=== PATIENT | female | born 1940 | race Asian ===

== ENCOUNTER 2022-07-21 15:05 | Emergency (ER) | payer OTHER, MEDICAID ==
[~2022-07-21] VITALS: Ht 157.5 cm; Wt 68.0 kg
[2022-07-21 15:20] VITALS: BP 127/76
--- NOTE | 2022-07-21 15:35 | NUR ---
TO ER BED 11
--- NOTE | 2022-07-21 15:40 | NUR ---
ASSUMED PATIENT CARE, NURSING ASSESSMENT COMPLETED.
[2022-07-21] MEDS ORDERED: MORPHINE SULFATE 4 MG/ML SYR IM ONE (15:45)
[2022-07-21] MEDS ORDERED: ACET-5629 PO ×2 (16:25→16:42)
--- NOTE | 2022-07-21 16:51 | NUR ---
DISPO AND MEDICAL DECISION MAKING, DC HOME WITH E-RX, AND AFTERCARE INSTRUCTIONS UNDERSTOOD BY PATIENT AND DAUGHTER WELL. VS WNL, DC WITH DAUGHTER VIA WC.
[2022-07-21 16:53] VITALS: BP 122/65
== END 2022-07-21 16:53 | disposition home or self-care (01) ==
LOC: MED 15:05
DX: M25.571 Pain in right ankle and joints of right foot (principal); I10 Essential (primary) hypertension; Z79.899 Other long term (current) drug therapy
CPT/HCPCS: 73610; 96372; 99283; J2270; Q0092

== ENCOUNTER 2022-07-29 10:57 | Inpatient (IN) | payer OTHER, MEDICAID ==
[~2022-07-29] VITALS: Ht 154.9 cm; Wt 66.7 kg
[~2022-07-29 10:57] MED LIST: ACET-5629 PO
[2022-07-29 11:07] VITALS: BP 167/101
--- NOTE | 2022-07-29 11:17 | NUR ---
Shaggy louis in [facility] - 07/29/22 at 1119 by MED1 PT W/C ASSISTED TO BED 2.
--- NOTE | 2022-07-29 11:19 | NUR ---
PT W/C ASSISTED TO BED 12.
--- NOTE | 2022-07-29 11:56 | NUR ---
ASSUMED PATIENT CARE, NURSING ASSESSMENT COMPLETED.
[2022-07-29 13:18] LABS: HEMATOCRIT 45.9 % (36-48); MEAN CORPUSCULAR HEMOGLOBIN 29 pg (27-31); MEAN CORPUSCULAR HGB CONC 33 g/dL (33-37); MEAN CORPUSCULAR VOLUME 87.6 fL (80-94); PLATELET COUNT (AUTO) 254 K/uL (140-450); RED BLOOD CELL COUNT(AUTO) 5.23 MIL/uL (4.20-5.40); WHITE BLOOD COUNT (AUTO) 14.3 K/uL (4.8-10.8)
[2022-07-29] MEDS ORDERED: NACL 0.9% 2,000 ML IV SCH (13:35)
[2022-07-29 13:51] LABS: EOSINOPHILS % (MANUAL) 1 % (0-4); LYMPHOCYTES % (MANUAL) 9 % (20-46); MONOCYTES % (MANUAL) 7 % (5-12)
[2022-07-29 14:04] LABS: ALBUMIN 3.6 g/dL (3.4-5.0); ANION GAP 13.7 (8-16); ASPARTATE AMINOTRANSFERASE 19 U/L (15-37); CHLORIDE 105 mmol/L (98-107); CREATININE 0.9 mg/dL (0.6-1.3); GLUCOSE 119 mg/dL (74-106); POTASSIUM 3.7 mmol/L (3.5-5.1); SODIUM SERUM 143 mmol/L (136-145); TOTAL BILIRUBIN 0.6 mg/dL (0.0-1.0); UREA NITROGEN, BLOOD 15 mg/dL (7-18)
[2022-07-29] MEDS ORDERED: cefTRIAXone 1,000 MG VIAL ONE (14:07)
[2022-07-29 14:20] LABS: APPEARANCE,URINE CLEAR (CLEAR); BILIRUBIN,URINE NEGATIVE (NEGATIVE); BLOOD, URINE NEGATIVE (NEGATIVE); COLOR,URINE YELLOW (YELLOW); LEUKOCYTE ESTERASE ,URINE NEGATIVE (NEGATIVE); NITRITE, URINE POSITIVE (NEGATIVE); UGLUCOSE NEGATIVE (NEGATIVE)
[2022-07-29] MEDS ORDERED: DEXTROSE 50% 50 ML SYR IVP PRN (14:20)
[2022-07-29 14:38] LABS: RBC,URINE 0-5 /HPF (0-5); WBC,URINE 0-5 /HPF (0-5)
[2022-07-29] MEDS: BLOOD GLUCOSE MONITORING 1 DEV DEV FS SCH ×2 (16:30→23:17)
[2022-07-29] MEDS: lisinopriL 5 MG TAB PO SCH (17:52)
--- NOTE | 2022-07-29 18:24 | NUR ---
P.T. NOTES P.T. EVAL COMPLETED; REFER TO EVAL FOR DETAILS.
--- NOTE | 2022-07-29 18:27 | NUR ---
DAUGHTER UNABLE TO RECALL PATIENT'S MEDS.
--- NOTE | 2022-07-29 19:45 | NUR ---
Patient lying in bed, A/Ox4, chest rise and fall symmetrical, no c/o pain or s/s of discomfort, on monitor.
--- NOTE | 2022-07-29 20:47 | NUR ---
NURSE REPORT REPORT OBTAINED FROM ER NURSE BRITTANY AND PATIENT TO BE IN 127B. DAUGHTER WAS WITH PATIENT AND NEEDED HER TO ASK QUESTIONS, SINCE PATIENT SPEAK ONLY ICELANDIC.
--- NOTE | 2022-07-29 20:47 | NUR ---
Patient will be admitted to care of Jose SUAREZ. Admited to Tele. Will go to room Tele 127A. Belongings list completed. Report to Jose SUAREZ. Jose SUAREZ verbalized understanding of report, no further questions.
[2022-07-29 21:00] VITALS: BP 157/95
[2022-07-29] MEDS: INSULIN LISPRO SLIDING SCALE 100 UNITS/ML VIAL SUBQ PRN (23:17)
[2022-07-29] MEDS: MORPHINE SULFATE 2 MG/ML SYR IVP PRN (23:39)
[2022-07-30] VITALS: BP 134/78
--- NOTE | 2022-07-30 | NUR ---
NURSE NOTES VSS. AFEB. NO C/O PAIN OR DISCOMFORT. TELE MONITOR WITH SR.
[2022-07-30 05:00] VITALS: BP 118/72
[2022-07-30] MEDS ORDERED: CARB1TAB37 PO (06:42)
[2022-07-30] MEDS ORDERED: ATOR10TA PO (06:42)
[2022-07-30] MEDS ORDERED: RASA1TAB PO (06:42)
[2022-07-30] MEDS ORDERED: [UNRECOGNIZED DRUG - CODE] PO (06:42)
[2022-07-30] MEDS ORDERED: METF-346 PO (06:42)
[2022-07-30] MEDS ORDERED: SITA50TA3 PO (06:42)
[2022-07-30] MEDS ORDERED: HYDR-3729 PO (06:42)
--- NOTE | 2022-07-30 07:07 | NUR ---
receive the patient from the shift nurse manager rn in rm 110B aox 3 with episode of confusion admitting diagnosis of generalized weakness . will continue to monitor
--- NOTE | 2022-07-30 07:20 | NUR ---
NURSE REPORT REPORT GIVEN TO [facility] NURSE MARYLIN TO ASSUME CARE OF PATIENT. SBAR GIVEN. ALL QUESTIONS ANSWERED. EARL CLINTON RN
[2022-07-30] MEDS ORDERED: [UNRECOGNIZED DRUG - CODE] OP (07:28)
[2022-07-30] MEDS ORDERED: BRIM5SOL3 OP (07:32)
[2022-07-30] MEDS ORDERED: MAG SULF 2000 MG/WATER PREMIX 50 ML IV PRN (07:40)
[2022-07-30] MEDS ORDERED: MORPHINE SULFATE 2 MG/ML SYR IVP PRN (07:40)
[2022-07-30] MEDS ORDERED: DOCUSATE SODIUM 100 MG GELCAP PO PRN (07:40)
[2022-07-30] MEDS ORDERED: ACETAMINOPHEN 325 MG TAB PO PRN (07:40)
[2022-07-30] MEDS ORDERED: ZOLPIDEM 10 MG TAB PO PRN (07:40)
[2022-07-30] MEDS ORDERED: POTASSIUM CHLORIDE 10 MEQ TABER PO PRN (07:40)
[2022-07-30] MEDS ORDERED: ONDANSETRON 4 MG/2 ML VIAL IVP PRN (07:40)
[2022-07-30] MEDS ORDERED: LORazepam 2 MG/ML VIAL IVP PRN (07:40)
[2022-07-30 08:00] VITALS: BP 154/82
[2022-07-30] MEDS: BLOOD GLUCOSE MONITORING 1 DEV DEV FS SCH ×4 (08:18→21:00)
[2022-07-30] MEDS ORDERED: CARBIDOPA/LEVODOPA 25/100 MG 1 TAB PO SCH (09:00)
[2022-07-30] MEDS: lisinopriL 5 MG TAB PO SCH (09:16)
[2022-07-30] MEDS: AMANTADINE 100 MG CAP PO SCH (09:17)
--- NOTE | 2022-07-30 09:19 | NUR ---
PATIENT HAS BEEN SCREENED AND CATEGORIZED MODERATE NUTRITION RISK. PATIENT WILL BE SEEN WITHIN 3-5 DAYS OF ADMISSION. REVIEWED BY SUREKHA BURGOS RD
[2022-07-30] MEDS: NACL 0.9% 1,000 ML IV SCH ×2 (10:53→21:06)
[2022-07-30] MEDS: INSULIN LISPRO SLIDING SCALE 100 UNITS/ML VIAL SUBQ PRN (11:20)
[2022-07-30] MEDS: DORZOLAMIDE 2% OP 10 ML BTL OP SCH ×2 (13:29→21:00)
[2022-07-30] MEDS: BRIMONIDINE TARTRATE 0.2% OP 5 ML BTL OP SCH ×2 (13:30→20:59)
--- NOTE | 2022-07-30 13:37 | NUR ---
DC PLANNING OUTREACHED TO PT'S EMERGENCY CONTACT, LILIAM SHAW, HOWEVER, NO ANSWER. MESSAGE LEFT REQUESTING A RETURN PHONE CALL. Addendum: 08/02/22 at 1603 by BRII NORTON [facility] RECEIVED ORDER TO ARRANGE PT TO GO BACK TO [facility] FOR PHYSICAL THERAPY. DC RAILROAD FIRER FAXED TO [facility]. SPOKE WITH NAVEED AND [facility] ACCEPTED PT BACK LOCATED AT [address] [place] [address] . PT WILL BE GOING TO ROOM 28-A UNDER THE CARE OF DR. YEN. NUMBER FOR REPORT . LEONARD VALLEJO ARRANGED WITH [facility] AT [facility] WITH A [id number] FIELD INSTALLER TIME.NURSE SLOAN AND DAUGHTER LILIAM AWARE OF THE ABOVE INFORMATION.
[2022-07-30 16:00] VITALS: BP 138/75
--- NOTE | 2022-07-30 18:35 | NUR ---
will endorse to night time nanny rn for continuity of care
[2022-07-30 20:00] VITALS: BP 147/83
--- NOTE | 2022-07-30 20:00 | NUR ---
NURSE REPORT REPORT OBTAINED FROM [facility] NURSE COULTER AND THIS NURSE ASSUME CARE OF PATIENT. ALL QUESTIONS ANSWERED. EARL CLINTON RN
--- NOTE | 2022-07-30 20:00 | NUR ---
NURSE REPORT REPORT OBTAINED FROM THE DAYSHIFT NURSE MARYLIN AND HE C/O PATIENT DIDN'T HAVE AN IV THIS AM. PATIENT WAS GIVEN IV MORPHINE DURING THE NIGHT. PATIENT PULLED OUT IV IN THE AM AND HE WAS TOLD TO RESTART THE IV. HAD DID EVERYTHING FOR ADMISSION, GETTING MED IN THE SYSTEM.
[2022-07-30] MEDS: ATORVASTATIN 20 MG TAB PO SCH (20:56)
[2022-07-30] MEDS: MORPHINE SULFATE 2 MG/ML SYR IVP PRN (23:12)
--- NOTE | 2022-07-31 | NUR ---
NURSE NOTES MEDICATED FOR PAIN WITH MORPHINE 2 MG IVP AT 2312 WITH RELIEF. SLEEPING WITHOUT ANY DISTRESS OR DISCOMFORT.
[2022-07-31 04:00] VITALS: BP 149/92
--- NOTE | 2022-07-31 04:00 | NUR ---
NURSE NOTES VSS. AFEB. NO C/O PAIN OR DISCOMFORT.
[2022-07-31] MEDS: BLOOD GLUCOSE MONITORING 1 DEV DEV FS SCH ×4 (06:47→20:38)
[2022-07-31] MEDS: NACL 0.9% 1,000 ML IV SCH (06:55)
--- NOTE | 2022-07-31 07:00 | NUR ---
NURSE NOTES BG THIS AM 134. NO INSULIN NEEDED. MEDICATED FOR PAIN WITH MORPHINE 2 MG IVP, IV NS 1 L HUNG AND AT 70 ML/HR.
--- NOTE | 2022-07-31 07:01 | NUR ---
receive the patinet from the fast food shift supervisor rn in rm 110B aox4 admitting diagnosis of generalized weakness . will continue to monitor
--- NOTE | 2022-07-31 07:12 | NUR ---
NURSE REPORT REPORT GIVEN TO DAYSHIFT NURSE GEARD TO ASSUME CARE OF PATIENT. ALL QUESTIONS ANSWERED. EARL CLINTON RN
--- NOTE | 2022-07-31 07:41 | NUR ---
NURSE NOTES INPATIENT PHARMACY WAS CALLED AND TOLD THAT THE SINEMET IS SUPPOSED TO BE GIVEN 2 TABS IN AM, 2 TABS AT 1400, AND 1 TAB AT BEDTIME. DAUGHTER ERICKA HAD TOLD THIS NURSE THE MEDICATION BY SENDING PICTURES OF MEDICATION BOTTLES. DAUGHTER HAS BEEN CALLED BY THIS NURSE SO SHE TO CAN SPEAK TO HER MOTHER OFF HER CELLPHONE AND ALSO HELP SPEAK IN OCCITAN. PATIENT IS MORE COOPERATIVE WHEN THIS NURSE DOES THIS. SINEMET ORDER HAS BEEN FIXED BY PHARMACY AND NOT 3XWEEK.
[2022-07-31 07:54] LABS: BASOPHILS % (AUTO) 0.2 % (0.0-2.0); EOSINOPHILS % (AUTO) 0.2 % (0.0-4.0); HEMATOCRIT 44.7 % (36-48); LYMPHOCYTES # (AUTO) 1.5 K/uL (2.5-16.5); LYMPHOCYTES % (AUTO) 14.1 % (20.5-51.1); MEAN CORPUSCULAR HEMOGLOBIN 29 pg (27-31); MEAN CORPUSCULAR HGB CONC 33 g/dL (33-37); MEAN CORPUSCULAR VOLUME 87.1 fL (80-94); MONOCYTES % (AUTO) 9.6 % (1.7-9.3); NEUTROPHILS # (AUTO) 8.1 K/uL (1.8-7.7); NEUTROPHILS % (AUTO) 75.9 % (42.2-75.2); PLATELET COUNT (AUTO) 248 K/uL (140-450); RED BLOOD CELL COUNT(AUTO) 5.14 MIL/uL (4.20-5.40); RED CELL DISTRIBUTION WIDTH 14.7 % (11.6-13.7); WHITE BLOOD COUNT (AUTO) 10.7 K/uL (4.8-10.8)
[2022-07-31 08:00] VITALS: BP 147/83
[2022-07-31 08:38] LABS: ANION GAP 12.1 (8-16); CARBON DIOXIDE 29.2 mmol/L (21-32); CHLORIDE 104 mmol/L (98-107); CREATININE 0.7 mg/dL (0.6-1.3); GLUCOSE 134 mg/dL (74-106); POTASSIUM 3.3 mmol/L (3.5-5.1); SODIUM SERUM 142 mmol/L (136-145); UREA NITROGEN, BLOOD 10 mg/dL (7-18)
--- NOTE | 2022-07-31 09:00 | NUR ---
ward joiner made rounds . talk with daughter for prognosis . md order xray of right knee , hips .
[2022-07-31] MEDS: AMANTADINE 100 MG CAP PO SCH (09:03)
[2022-07-31] MEDS: lisinopriL 5 MG TAB PO SCH (09:04)
[2022-07-31] MEDS: DORZOLAMIDE 2% OP 10 ML BTL OP SCH ×2 (09:04→20:36)
[2022-07-31] MEDS: CARBIDOPA/LEVODOPA 25/100 MG 1 TAB PO SCH ×3 (09:04→20:35)
[2022-07-31] MEDS: BRIMONIDINE TARTRATE 0.2% OP 5 ML BTL OP SCH ×2 (09:05→20:36)
--- NOTE | 2022-07-31 09:20 | NUR ---
gave potassium chloride for a level of 3.2
[2022-07-31] MEDS: INSULIN LISPRO SLIDING SCALE 100 UNITS/ML VIAL SUBQ PRN ×3 (11:52→20:46)
[2022-07-31 12:00] VITALS: BP 149/92
[2022-07-31 16:00] VITALS: BP 149/92
--- NOTE | 2022-07-31 18:47 | NUR ---
will endorse to shift production supervisor rn for continuity of care .
--- NOTE | 2022-07-31 18:49 | NUR ---
will endorse to production shift supervisor rn for continuity of care
--- NOTE | 2022-07-31 19:19 | NUR ---
RECEIVED REPORT FROM DANIELA MACKENZIE FOR CONTINUITY OF CARE. PT AWAKE RESTING IN BED. RESPIRATIONS EVEN AND UNLABORED ON RA. NO DISTRESS NOTED. NO COMPLAINTS OF PAIN. SKIN INTACT, WARM AND DRY TO TOUCH. IV SITE ON RAC INFUSING IVF. POC DISCUSSED WITH THE PT AND DANIELA CRUZ. CALL LIGHT WITHIN REACH. SAFETY PRECAUTIONS IN PLACE.
[2022-07-31 20:00] VITALS: BP 118/65
--- NOTE | 2022-07-31 20:00 | NUR ---
Patient's Plan of Care was discussed and reviewed with KIRSTEN RAE:
[2022-07-31] MEDS: ATORVASTATIN 20 MG TAB PO SCH (20:35)
--- NOTE | 2022-07-31 20:38 | NUR ---
V/S TAKEN. ADMINISTERED DUE MEDS. SLIDING SCALE GIVEN. CLEANED AND CHANGED PT DIAPER. PT TOLERATED WELL. NO COMPLAINTS OF PAIN.
[2022-08-01] MEDS: NACL 0.9% 1,000 ML IV SCH ×2 (02:39→16:30)
[2022-08-01 04:00] VITALS: BP 142/82
--- NOTE | 2022-08-01 04:15 | NUR ---
V/S TAKEN. MORNING CARE DONE. PT TOLERATED WELL. FOLLOWS COMMAND. NO COMPLAINTS OF PAIN. PT REMAINED CLEAN AND DRY.
[2022-08-01] MEDS: MORPHINE SULFATE 2 MG/ML SYR IVP PRN ×2 (05:39→16:28)
[2022-08-01] MEDS: BLOOD GLUCOSE MONITORING 1 DEV DEV FS SCH ×4 (06:34→20:20)
[2022-08-01 06:56] LABS: BASOPHILS % (AUTO) 0.2 % (0.0-2.0); EOSINOPHILS # (AUTO) 0.1 K/uL (0-0.4); HEMATOCRIT 41.7 % (36-48); HEMOGLOBIN 13.7 g/dL (12.0-16.0); LYMPHOCYTES # (AUTO) 1.4 K/uL (2.5-16.5); LYMPHOCYTES % (AUTO) 21.6 % (20.5-51.1); MEAN CORPUSCULAR HEMOGLOBIN 29 pg (27-31); MEAN CORPUSCULAR HGB CONC 33 g/dL (33-37); MEAN CORPUSCULAR VOLUME 88.1 fL (80-94); MONOCYTES # (AUTO) 0.7 K/uL (0.8-1.0); MONOCYTES % (AUTO) 10.6 % (1.7-9.3); NEUTROPHILS # (AUTO) 4.4 K/uL (1.8-7.7); NEUTROPHILS % (AUTO) 66.6 % (42.2-75.2); PLATELET COUNT (AUTO) 210 K/uL (140-450); RED BLOOD CELL COUNT(AUTO) 4.73 MIL/uL (4.20-5.40); RED CELL DISTRIBUTION WIDTH 14.6 % (11.6-13.7); WHITE BLOOD COUNT (AUTO) 6.6 K/uL (4.8-10.8)
--- NOTE | 2022-08-01 07:06 | NUR ---
GAVE BEDSIDE REPORT TO RN RAFA FOR CONTINUITY OF CARE. ALL NEEDS MET THROUGHOUT SHIFT. PT REMAINS STABLE.
[2022-08-01 07:20] LABS: ANION GAP 10.6 (8-16); CARBON DIOXIDE 28.2 mmol/L (21-32); CHLORIDE 107 mmol/L (98-107); CREATININE 0.7 mg/dL (0.6-1.3); GLUCOSE 118 mg/dL (74-106); POTASSIUM 3.8 mmol/L (3.5-5.1); SODIUM SERUM 142 mmol/L (136-145); UREA NITROGEN, BLOOD 9 mg/dL (7-18)
--- NOTE | 2022-08-01 07:30 | NUR ---
RECEIVED REPORT FROM [facility] NURSEKIRSTEN. PT AWAKE, ALERT. NO SOB OR RESPIRATORY DISTRESS. ON RA. HOB ELEVATED. REGULAR DIET. NS @ 70 ML/HR ON RAC #20. IN NO ACUTE DISTRESS AT THIS TIME. ALL SAFETY MEASURES IN PLACE.
[2022-08-01 08:00] VITALS: BP 150/90
[2022-08-01] MEDS: CARBIDOPA/LEVODOPA 25/100 MG 1 TAB PO SCH ×3 (08:32→20:22)
[2022-08-01] MEDS: lisinopriL 5 MG TAB PO SCH (08:34)
[2022-08-01] MEDS: AMANTADINE 100 MG CAP PO SCH (08:35)
[2022-08-01] MEDS: DORZOLAMIDE 2% OP 10 ML BTL OP SCH ×2 (08:35→20:21)
[2022-08-01] MEDS: BRIMONIDINE TARTRATE 0.2% OP 5 ML BTL OP SCH ×2 (08:36→20:20)
--- NOTE | 2022-08-01 11:00 | NUR ---
PLAN OF CARE DISCUSSED WITH PT'S SON AT BEDSIDE. ALL QUESTIONS ANSWERED. PT'S SON STATES PT NEEDS TO BE CLEANED. CONTACTED MANAGER SOCIAL SERVICES TO CHANGE PT.
[2022-08-01] MEDS: INSULIN LISPRO SLIDING SCALE 100 UNITS/ML VIAL SUBQ PRN ×3 (11:42→20:20)
--- NOTE | 2022-08-01 14:47 | NUR ---
PT WITH URINE OUTPUT. HYGIENIC CARE PROVIDED. PT REPOSITIONED AND TOLERATED WELL. SEMI-FOWLERS. NEEDS ALL MET AT THIS TIME. ALL SAFETY MEASURES IN PLACE.
[2022-08-01 16:00] VITALS: BP 147/87
--- NOTE | 2022-08-01 19:22 | NUR ---
BEDSIDE REPORT GIVEN TO NIGHTSHIFT NURSEKIRSTEN FOR CONTINUITY OF CARE.
--- NOTE | 2022-08-01 19:23 | NUR ---
RECEIVED REPORT FROM DAY SHIFT NURSE RAFA FOR CONTINUITY OF CARE. PT IN BED, AWAKE. RESPIRATIONS EVEN AND UNLABORED ON RA. NO DISTRESS NOTED. NO COMPLAINTS OF PAIN. INITIAL ASSESSMENT DONE. POC DISCUSSED WITH PT AND DANIELA WELLS. CALL LIGHT WITHIN REACH. SAFETY PRECAUTIONS IN PLACE.
[2022-08-01 20:00] VITALS: BP 117/63
[2022-08-01] MEDS: ATORVASTATIN 20 MG TAB PO SCH (20:22)
--- NOTE | 2022-08-01 20:28 | NUR ---
ADMINISTERED DUE MEDS. PT TOLERATED WELL. SLIDING SCALE INSULIN GIVEN. CLEANED AND CHANGED PT DIAPER, REMAINED CLEAN AND DRY.
--- NOTE | 2022-08-01 22:34 | NUR ---
Patient's Plan of Care was discussed and reviewed with BUTCH CURTIS.
[2022-08-02] MEDS: NACL 0.9% 1,000 ML IV SCH (02:24)
[2022-08-02] MEDS: MORPHINE SULFATE 2 MG/ML SYR IVP PRN ×2 (02:55→14:38)
--- NOTE | 2022-08-02 06:05 | NUR ---
DID MORNING CARE. CLEANED AND CHANGED PT DIAPER. PT NO COMPLAINT OF PAIN AT THIS TIME. NO DISTRESS NOTED.
[2022-08-02] MEDS: BLOOD GLUCOSE MONITORING 1 DEV DEV FS SCH ×3 (06:37→16:30)
[2022-08-02 06:53] LABS: ANION GAP 10.9 (8-16); CARBON DIOXIDE 28.4 mmol/L (21-32); CHLORIDE 107 mmol/L (98-107); CREATININE 0.7 mg/dL (0.6-1.3); GLUCOSE 118 mg/dL (74-106); POTASSIUM 3.3 mmol/L (3.5-5.1); SODIUM SERUM 143 mmol/L (136-145); UREA NITROGEN, BLOOD 8 mg/dL (7-18)
[2022-08-02 07:02] LABS: BASOPHILS % (AUTO) 0.2 % (0.0-2.0); EOSINOPHILS # (AUTO) 0.1 K/uL (0-0.4); EOSINOPHILS % (AUTO) 1.2 % (0.0-4.0); HEMATOCRIT 41.6 % (36-48); HEMOGLOBIN 13.9 g/dL (12.0-16.0); LYMPHOCYTES # (AUTO) 1.7 K/uL (2.5-16.5); MEAN CORPUSCULAR HEMOGLOBIN 29 pg (27-31); MEAN CORPUSCULAR HGB CONC 33 g/dL (33-37); MEAN CORPUSCULAR VOLUME 87.6 fL (80-94); MONOCYTES # (AUTO) 0.6 K/uL (0.8-1.0); MONOCYTES % (AUTO) 7.7 % (1.7-9.3); NEUTROPHILS # (AUTO) 5.6 K/uL (1.8-7.7); NEUTROPHILS % (AUTO) 69.9 % (42.2-75.2); PLATELET COUNT (AUTO) 215 K/uL (140-450); RED BLOOD CELL COUNT(AUTO) 4.75 MIL/uL (4.20-5.40); RED CELL DISTRIBUTION WIDTH 14.6 % (11.6-13.7)
--- NOTE | 2022-08-02 07:04 | NUR ---
receive the patinet from the rn shift mgr rn in rm 110b aox2 admitting diagnosis of genralized weakness. will continue to monitor
--- NOTE | 2022-08-02 07:25 | NUR ---
ENDORSED PT TO RN GURDEEP FOR CONTINUITY OF CARE. ALL NEEDS MET THROUGHOUT SHIFT. PT IS STABLE.
[2022-08-02 08:00] VITALS: BP 140/90
[2022-08-02] MEDS: AMANTADINE 100 MG CAP PO SCH (09:14)
[2022-08-02] MEDS: DORZOLAMIDE 2% OP 10 ML BTL OP SCH (09:14)
[2022-08-02] MEDS: BRIMONIDINE TARTRATE 0.2% OP 5 ML BTL OP SCH (09:14)
[2022-08-02] MEDS: lisinopriL 5 MG TAB PO SCH (09:15)
[2022-08-02] MEDS: CARBIDOPA/LEVODOPA 25/100 MG 1 TAB PO SCH ×2 (09:21→13:33)
[2022-08-02] MEDS ORDERED: CEFT1SOL1 IV (10:29)
[2022-08-02] MEDS: INSULIN LISPRO SLIDING SCALE 100 UNITS/ML VIAL SUBQ PRN (12:55)
--- NOTE | 2022-08-02 14:00 | NUR ---
replace potassium for 3.3 . 40 meq of potassium by mouth
[2022-08-02 16:00] VITALS: BP 130/88
--- NOTE | 2022-08-02 16:01 | NUR ---
PT. WITH LOW JOJO SCALE AT MODERATE TO HIGH RISK, CONTINUE TO FOLLOW PRESSURE INJURY PREVENTION INTERVENTIONS. -POSITIONING: TURN AND REPOSITION PATIENT Q 2H OR SOONER USE PILLOWS TO KEEP BONY PROMINENCES FROM DIRECT CONTACT WITH SURFACES USE REPOSITIONING WEDGES TO PROVIDE 30-DEGREE ANGLE FOR SIDE LYING POSITIONS OFFLOADING OR FOAM DRESSING TO ALL TUBING TO PREVENT MEDICAL DEVICES RELATED PRESSURE INJURY -RE-EVALUATING AND MANAGING INCONTINENCE MONITOR SKIN CONDITION DURING POSITION CHANGE DO NOT MASSAGE REDNESS, BONY PROMINENCES FREQUENT SHAVONNE-CARE AND PROVIDE BARRIER CREAMS PRN IF SOILING MOISTURE CONTROL BY OFFER BED RODRIGEZ/URINAL /ABSORBENT PAD TO WICK AND HOLD MOISTURE KEEP SKIN DRY AND PROTECT FROM FRICTION -MANAGE FRICTION/SHEAR/MOBILITY KEEP HOB AT THE LOWEST LEVEL OF ELEVATION NO MORE THAN 30 DEGREE UNLESS OTHERWISE CONTRAINDICATED USE LIFT SHEET OR TRANSFER DEVICE TO MOVE PATIENT AND PREVENT LATERAL SHEER. PROTECT HEELS, ELBOWS BONY PROMINENCES WITH SKIN BERRIES OR FOAM DRESSING IF EXPOSED TO FRICTION OFFLOAD BILATERAL HEELS BY PLACING PILLOWS UNDER CALVES AT ALL TIMES, UNLESS OTHERWISE CONTRAINDICATED -PRESSURE REDISTRIBUTION SURFACE THERAPY RUTH ISOFLEX MATTRESS -NUTRITION: PLEASE FOLLOW RD RECOMMENDATIONS AND OFFER NUTRITION SUPPLEMENTS IF ORDERED. PLEASE CONTACT WOUND CARE NURSE FOR ANY QUESTION AND CHANGE OF WOUND CONDITION
--- NOTE | 2022-08-02 16:40 | NUR ---
gave report to [facility] for transfer
--- NOTE | 2022-08-02 18:59 | NUR ---
will endorse to night worker rn for continuity of care . will be discharge to [facility]
--- NOTE | 2022-08-02 19:55 | NUR ---
TRANSPORT IS HERE TO TRANSFER PATIENT TO [facility]. PATIENT HAS ALL BELONGINGS WITH HER, DISCHARGE PACKET GIVEN TO PATIENT, PATIENT FAMILY AT BEDSIDE. PT IS STABLE. PATIENT HAS BEEN DISCHARGED. AM SHIFT RN GAVE REPORT TO RECEIVING FACILITY
== END 2022-08-02 19:55 | DRG 872 ==
LOC: MED 10:57 → MTU 14:15 → MMU 18:58 → MTU 22:05
PROVIDERS: ADMIT Family Medicine; ATTEND Family Medicine
DX: A41.9 Sepsis, unspecified organism (principal); N39.0 Urinary tract infection, site not specified; M51.36 Other intervertebral disc degeneration, lumbar region; M54.31 Sciatica, right side; I10 Essential (primary) hypertension; G20 Parkinson's disease; E11.65 Type 2 diabetes mellitus with hyperglycemia; M25.561 Pain in right knee; M25.551 Pain in right hip; Z20.822 Contact with and (suspected) exposure to COVID-19; D72.829 Elevated white blood cell count, unspecified; Z79.891 Long term (current) use of opiate analgesic; Z79.899 Other long term (current) drug therapy
CPT/HCPCS: 36415; 71045; 73502; 73562; 80048; 80053; 81001; 82550; 82948; 83605; 83735; 84484; 85025; 87040; 87081; 87086; 96361; 96365; 97110; 97112; 97116; 97530; 99291; J0696; J1815; J2270; J7060; Q0092

== ENCOUNTER 2022-09-14 11:46 | Inpatient (IN) | payer OTHER, MEDICAID ==
[~2022-09-14] VITALS: Ht 167.6 cm; Wt 81.6 kg
[~2022-09-14 11:46] MED LIST changes: -ACET-5629 PO; +ATOR10TA PO; +BRIM5SOL3 OP; +CARB1TAB37 PO; +CEFT1SOL1 IV; +HYDR-3729 PO; +METF-346 PO; +RASA1TAB PO; +SITA50TA3 PO; +[UNRECOGNIZED DRUG - CODE] OP; +[UNRECOGNIZED DRUG - CODE] PO
[2022-09-14 12:04] VITALS: BP 101/67
--- NOTE | 2022-09-14 12:39 | NUR ---
HUNGARIAN LEATHER TOGGLER #[id number] SAEED AT BEDSIDE. PT COOPERATIVE WITH CARE
[2022-09-14 13:19] LABS: BASOPHILS # (AUTO) 0.1 K/uL (0.00-0.22); BASOPHILS % (AUTO) 0.5 % (0.0-2.0); EOSINOPHILS % (AUTO) 0.4 % (0.0-4.0); HEMATOCRIT 41.8 % (36-48); HEMOGLOBIN 14.2 g/dL (12.0-16.0); LYMPHOCYTES % (AUTO) 25.7 % (20.5-51.1); MEAN CORPUSCULAR HEMOGLOBIN 30 pg (27-31); MEAN CORPUSCULAR HGB CONC 34 g/dL (33-37); MONOCYTES # (AUTO) 1.1 K/uL (0.8-1.0); MONOCYTES % (AUTO) 9.4 % (1.7-9.3); NEUTROPHILS # (AUTO) 7.5 K/uL (1.8-7.7); PLATELET COUNT (AUTO) 297 K/uL (140-450); RED CELL DISTRIBUTION WIDTH 14.5 % (11.6-13.7); WHITE BLOOD COUNT (AUTO) 11.7 K/uL (4.8-10.8)
[2022-09-14 13:37] LABS: LIPASE 91 U/L (73-393)
[2022-09-14 13:41] LABS: PROTHROMBIN TIME 12.6 secs (10.8-13.4)
[2022-09-14 13:50] LABS: ALBUMIN 3.6 g/dL (3.4-5.0); ANION GAP 13.1 (8-16); ASPARTATE AMINOTRANSFERASE 21 U/L (15-37); CARBON DIOXIDE 31.3 mmol/L (21-32); CHLORIDE 95 mmol/L (98-107); GLUCOSE 99 mg/dL (74-106); POTASSIUM 3.4 mmol/L (3.5-5.1); SODIUM SERUM 136 mmol/L (136-145); TOTAL BILIRUBIN 1.4 mg/dL (0.0-1.0); UREA NITROGEN, BLOOD 35 mg/dL (7-18)
--- NOTE | 2022-09-14 13:57 | NUR ---
PT MOVED TO ER BED 4
--- NOTE | 2022-09-14 15:32 | NUR ---
SLEEPING, EASILY AROUSABLE, COOPERATIVE WITH CARE. DENIES ANY DISCOMFORT AT THIS TIME. DENIES NEED TO VOID URINE, NO BLADDER DISTENTION NOTED.
--- NOTE | 2022-09-14 17:44 | NUR ---
DAUGHTER AT BEDSIDE, SAYS PT FALLS DUE TO PARKINSONS, SHAKY HANDS AND WEAK LEGS
[2022-09-14] MEDS ORDERED: APIX5TAB PO (18:35)
[2022-09-14] MEDS ORDERED: HYDR-5080 PO (18:35)
--- NOTE | 2022-09-14 19:26 | NUR ---
RECEIVED PT SITTING UP IN BED, EATING MEAL TRAY.
[2022-09-14 19:59] LABS: APPEARANCE,URINE CLEAR (CLEAR); BILIRUBIN,URINE NEGATIVE (NEGATIVE); BLOOD, URINE NEGATIVE (NEGATIVE); COLOR,URINE YELLOW (YELLOW); LEUKOCYTE ESTERASE ,URINE NEGATIVE (NEGATIVE); NITRITE, URINE NEGATIVE (NEGATIVE); UGLUCOSE NEGATIVE (NEGATIVE)
--- NOTE | 2022-09-14 20:51 | NUR ---
REPORT CALLED TO DANIELA LI
[2022-09-14 21:35] VITALS: BP 103/68
--- NOTE | 2022-09-14 21:35 | NUR ---
PATIENT ADMITTED FROM ED, CAME VIA GURNEY, ABLE TO TRANSFER TO BED WITH MINIMUM ASSIST OF ONE. STAFF USES THE [employer] DETAIL SERGEANT SYSTEM #[id number], PATIENT IS ALERT AND ORIENTED X3, DENIES CHEST PAIN UPON ASSESSMENT, DENIES SOB. STAFF ALSO CALLED [facility] FOR ADMISSION INFORMATION OF PATIENT. PATIENT ORIENTED TO USE OF CALL LIGHT, CALL LIGHT WITHIN REACH, BED IN LOW AND LOCKED POSITION. MRSA DONE.
[2022-09-15] VITALS: BP 93/60
--- NOTE | 2022-09-15 00:10 | NUR ---
NO SIGNS OF DISTRESS NOTED, PATIENT IS ASLEEP, CALL LIGHT WITHIN REACH.
[2022-09-15 04:00] VITALS: BP 104/60
--- NOTE | 2022-09-15 04:15 | NUR ---
PATIENT IS AWAKE, NO SIGNS OF PAIN/DISCOMFORT NOTED, NO SIGNS OF DISTRESS NOTED. BEDSIDE CARE DONE, CALL LIGHT WITHIN REACH.
--- NOTE | 2022-09-15 05:30 | NUR ---
PATIENT WAS TALKING IN HER CAMPO LANGUAGE, STAFF USED [employer] [id number], PATIENT TOLD THE COMMERCIAL [employer]STATE PAR[employer]GAL THAT SHE PEE, SHE WANTS TO BE CHANGED INTO REGULAR BRIEFS, THAT SHE CAME BECAUSE OF CHEST PAIN, BUT DENIES CHEST PAIN AT THIS TIME. PATIENT WAS CHANGED, CALL LIGHT WITHIN REACH.
--- NOTE | 2022-09-15 06:30 | NUR ---
PATIENT C/O PAIN ON RIGHT LEG, COOK COLD MEAT DR. RALPH WAS NOTIFIED PATIENT HAS NO MEDICATIONS, AWAITING RESPONSE.
[2022-09-15] MEDS ORDERED: HYDROcodone/APAP 5/325 MG 1 TAB TAB ONE (06:51)
[2022-09-15] MEDS: HYDROcodone/APAP 5/325 MG 1 TAB TAB PO PRN (06:55)
--- NOTE | 2022-09-15 06:55 | NUR ---
PRN NORCO GIVEN ORDERED.
--- NOTE | 2022-09-15 07:18 | NUR ---
ENDORSED PATIENT TO DAY NURSE FOR CONTINUITY OF CARE. PATIENT IN STABLE CONDITION.
--- NOTE | 2022-09-15 07:30 | NUR ---
RECEIVED REPORT FROM OCCUPATIONAL HEALTH COORDINATOR NURSE FOR CONTINUITY OF CARE, POC DISCUSSED. PT IS RESTING IN BED, OCCUPATIONAL HEALTH COORDINATOR GAVE PAIN MEDICATION PER MD ORDER AT 0655. ON TELE MONITOR. ON ROOM AIR WITH CHEST RISING AND FALLING EVEN AND UNLABORED. CALL LIGHT WITHIN REACH, ALL SAFETY MEASURES IN PLACE.
[2022-09-15 08:00] VITALS: BP 168/72
--- NOTE | 2022-09-15 08:55 | NUR ---
PATIENT HAS BEEN SCREENED AND CATEGORIZED MODERATE NUTRITION RISK. PATIENT WILL BE SEEN WITHIN 3-5 DAYS OF ADMISSION. 09/17/22-09/19/[address]KHA BURGOS RD
[2022-09-15] MEDS ORDERED: CARBIDOPA/LEVODOPA 25/100 MG 1 TAB PO SCH (10:38)
[2022-09-15] MEDS ORDERED: DEXTROSE 50% 50 ML SYR IVP PRN (11:10)
[2022-09-15] MEDS: APIXABAN 2.5 MG TAB PO SCH ×2 (11:22→21:18)
[2022-09-15] MEDS: metFORMIN 500 MG TAB PO SCH ×2 (11:22→17:00)
[2022-09-15] MEDS: BLOOD GLUCOSE MONITORING 1 DEV DEV FS SCH ×3 (11:26→21:20)
--- NOTE | 2022-09-15 11:54 | NUR ---
DAUGHTER AT BEDSIDE, ALL QUESTIONS ANSWERED. POC DISCUSSED.
[2022-09-15 12:00] VITALS: BP 124/70
--- NOTE | 2022-09-15 13:48 | NUR ---
MINE ENGINEER AT BEDSIDE
--- NOTE | 2022-09-15 15:33 | NUR ---
DC PLANNING ASSESSMENT COMPLETE PLEASE REFER TO ASSESSMENT FOR ADDITIONAL DETAILS LILIAM , PT DAUGHTER REPORTS TENTATIVE DC PLAN IS FOR PT TO RETURN TO [facility], ONCE MEDICALLY STABLE. Addendum: 09/15/22 at 1534 by Doreen BELLA Amended: Links added.
[2022-09-15 16:00] VITALS: BP 113/71
--- NOTE | 2022-09-15 16:44 | NUR ---
PT DAUGHTER REQUESTING GRANDSONBENITO, AN UPDATE ON STATUS BY , NUMBER [phone] RALPH
--- NOTE | 2022-09-15 16:58 | NUR ---
1658: UPON ENTERING THE ROOM TO DO BLOOD SUGAR CHECK, DIAMOND POWDER MIXER CLEANING PT STATING PT IS BECOMING UNRESPONSIVE. STERNUM RUB COMPLETE, PT UNRESPONSIVE. STRONG PULSES BILATERAL. RAPID RESPONSE CALLED. VITAL SIGNS 113/71, HEART RATE 103, 98% O2 ON ROOM AIR, 25 RR, BLOOD SUGAR 103. PT ABLE TO TRACE WITH EYES, HOWEVER IS APHASIC. ED/ICU DIRECTOR JAZIEL AT BEDSIDE RECOMMENDING STROKE R/O. CALLED DR RALPH, DR RALPH ORDERED HEAD CT WITHOUT CONTRAST. PT TRANSPORTED TO CT ON MONITOR WITH PRIMARY NURSE AND DIRECTOR. HEAD CT NEGATIVE FOR BRAIN BLEED. RETURNED TO ROOM AT 1725, PT STILL ABLE TO FOLLOW WITH EYES AND RAISE ARMS. VOYCE LEAD SIMULATION MODELING ENGINEER ATTEMPTED, PT STILL APHASIC. AT ROUGHLY 1731 PT ABLE TO COUNT TO 4, SMILE AND RESPOND. NOTIFIED OF NEGATIVE HEAD CT, ASKING IF MD WANTS TO ORDER A NEURO CONSULT. STATES NO NEED AT THIS TIME, TO DO NEUROCHECKS BID FOR 2 DAYS.
--- NOTE | 2022-09-15 18:39 | NUR ---
PT SITTING UP IN BED, ABLE TO GRAB HER FORK. PT ABLE TO MAKE NEEDS KNOWN. ON TELE MONITOR SHOWING ST. ALL SAFETY MEASURES IN PLACE, CALL LIGHT WITHIN REACH.
--- NOTE | 2022-09-15 19:20 | NUR ---
PT ENDORSED TO LOWERATOR OPERATOR, ALL SAFETY MEASURES IN PLACE
--- NOTE | 2022-09-15 19:25 | NUR ---
RECEIVED PATIENT FROM AM NURSE FOR CONTINUITY OF CARE. PT IS STABLE
[2022-09-15 20:00] VITALS: BP 110/66
[2022-09-15] MEDS: ATORVASTATIN 20 MG TAB PO SCH (21:17)
[2022-09-15] MEDS: INSULIN LISPRO SLIDING SCALE 100 UNITS/ML VIAL SUBQ PRN (21:19)
[2022-09-16] VITALS: BP 108/62
--- NOTE | 2022-09-16 | NUR ---
PATIENT ASLEEP, NO DISTRESS NOTED
[2022-09-16] MEDS: HYDROcodone/APAP 5/325 MG 1 TAB TAB PO PRN ×3 (00:18→22:59)
[2022-09-16 04:00] VITALS: BP 108/69
--- NOTE | 2022-09-16 06:31 | NUR ---
NO NEUROLOGICAL CHANGES NOTED THROUGHOUT THE SHIFT
[2022-09-16] MEDS: BLOOD GLUCOSE MONITORING 1 DEV DEV FS SCH ×4 (06:54→20:09)
--- NOTE | 2022-09-16 07:25 | NUR ---
ENDORSED PT TO AM NURSE FOR CONTINUITY OF CARE. PT IS STABLE
--- NOTE | 2022-09-16 07:40 | NUR ---
RECEIVED PATIENT FROM PM NURSE FOR CONTINUITY OF CARE. PATIENT SEEN AWAKE. WANTING WATER. PATIENT VITALS NORMAL
[2022-09-16 08:00] VITALS: BP 128/82
[2022-09-16] MEDS: metFORMIN 500 MG TAB PO SCH ×3 (08:25→16:37)
--- NOTE | 2022-09-16 09:00 | NUR ---
NO LABS ORDERED FOR 09/16/22. CONTACTED MD. NEW ORDERS GIVEN.
[2022-09-16] MEDS: APIXABAN 2.5 MG TAB PO SCH ×2 (09:01→20:10)
[2022-09-16 10:03] LABS: BASOPHILS % (AUTO) 0.4 % (0.0-2.0); EOSINOPHILS # (AUTO) 0.1 K/uL (0-0.4); EOSINOPHILS % (AUTO) 0.7 % (0.0-4.0); HEMATOCRIT 45.1 % (36-48); HEMOGLOBIN 15.3 g/dL (12.0-16.0); LYMPHOCYTES # (AUTO) 3.2 K/uL (2.5-16.5); LYMPHOCYTES % (AUTO) 26.2 % (20.5-51.1); MEAN CORPUSCULAR HEMOGLOBIN 30 pg (27-31); MEAN CORPUSCULAR HGB CONC 34 g/dL (33-37); MEAN CORPUSCULAR VOLUME 87.9 fL (80-94); MONOCYTES % (AUTO) 8.4 % (1.7-9.3); NEUTROPHILS # (AUTO) 7.8 K/uL (1.8-7.7); NEUTROPHILS % (AUTO) 64.3 % (42.2-75.2); PLATELET COUNT (AUTO) 320 K/uL (140-450); RED BLOOD CELL COUNT(AUTO) 5.14 MIL/uL (4.20-5.40); RED CELL DISTRIBUTION WIDTH 14.7 % (11.6-13.7); WHITE BLOOD COUNT (AUTO) 12.1 K/uL (4.8-10.8)
[2022-09-16 10:05] LABS: ANION GAP 13.8 (8-16); CARBON DIOXIDE 31.6 mmol/L (21-32); CHLORIDE 96 mmol/L (98-107); CREATININE 0.9 mg/dL (0.6-1.3); GLUCOSE 117 mg/dL (74-106); POTASSIUM 3.4 mmol/L (3.5-5.1); SODIUM SERUM 138 mmol/L (136-145); UREA NITROGEN, BLOOD 29 mg/dL (7-18)
[2022-09-16 10:07] LABS: MAGNESIUM 1.5 mg/dL (1.8-2.4); PHOSPHORUS 3.2 mg/dL (2.5-4.9)
[2022-09-16 12:00] VITALS: BP 111/74
[2022-09-16] MEDS: INSULIN LISPRO SLIDING SCALE 100 UNITS/ML VIAL SUBQ PRN (15:42)
[2022-09-16 16:00] VITALS: BP 117/67
[2022-09-16] MEDS ORDERED: POTASSIUM CHLORIDE 10 MEQ TABER PO SCH (16:30)
--- NOTE | 2022-09-16 19:19 | NUR ---
ENDORSED PATIENT TO PM NURSE FOR CONTINUATION OF CARE.
--- NOTE | 2022-09-16 19:20 | NUR ---
RECEIVED PT IN BED ASLEEP, EASILY AWAKEN BY VERBAL STIMULI. NO S/SX OF PAIN NOR DISCOMFORT. NO ACUTER RESPIRATORY DISTRESS. SKIN WARM AND DRY TO TOUCH. SAFETY PRECAUTIONS IN PLACE, CALL LIGHT IN REACH.
[2022-09-16 20:00] VITALS: BP 112/70
[2022-09-16] MEDS ORDERED: MAGNESIUM OXIDE 400 MG TAB PO SCH (20:00)
--- NOTE | 2022-09-16 20:10 | NUR ---
DUE MEDICATIONS GIVEN ORDERED, TOLERATED WELL.
[2022-09-16] MEDS: ATORVASTATIN 20 MG TAB PO SCH (20:11)
[2022-09-17] VITALS: BP 115/74
--- NOTE | 2022-09-17 | NUR ---
VITAL SIGNS TAKEN AND DOCUMENTED, WITHIN NORMAL LIMITS. NO ACUTE RESPIRATORY DISTRESS. CALL LIGHT IN WITHIN REACH.
--- NOTE | 2022-09-17 02:09 | NUR ---
ROUNDING DONE. PATIENT IS ASLEEP. BREATHING EVEN AND UNLABORED. CALL LIGHT WITHIN REACH.
[2022-09-17 04:00] VITALS: BP 117/68
[2022-09-17] MEDS: BLOOD GLUCOSE MONITORING 1 DEV DEV FS SCH (06:32)
--- NOTE | 2022-09-17 06:33 | NUR ---
PATIENT IS ASLEEP. NO DISTRESS NOTED. ALL NEEDS ATTENDED TO. SAFETY PRECAUTIONS MAINTAINED DURING THE SHIFT, CALL LIGHT REMAINS WITHIN REACH.
--- NOTE | 2022-09-17 07:15 | NUR ---
RECEIVED PATIENT FROM PM NURSE FOR CONTINUATION OF CARE
--- NOTE | 2022-09-17 07:15 | NUR ---
ENDORSED CARE TO AM NURSE. PATIENT IS ASLEEP AND STABLE.
[2022-09-17] MEDS: HYDROcodone/APAP 5/325 MG 1 TAB TAB PO PRN (07:36)
[2022-09-17 08:00] VITALS: BP 137/88
[2022-09-17] MEDS: metFORMIN 500 MG TAB PO SCH (08:07)
[2022-09-17] MEDS: APIXABAN 2.5 MG TAB PO SCH (08:41)
[2022-09-17] MEDS ORDERED: MAGNESIUM OXIDE 400 MG TAB PO SCH (09:00)
[2022-09-17] MEDS ORDERED: CARBIDOPA/LEVODOPA 25/100 MG 1 TAB PO SCH (09:00)
[2022-09-17 09:15] LABS: ANION GAP 12.3 (8-16); CARBON DIOXIDE 30.8 mmol/L (21-32); CHLORIDE 100 mmol/L (98-107); CREATININE 0.9 mg/dL (0.6-1.3); GLUCOSE 122 mg/dL (74-106); POTASSIUM 4.1 mmol/L (3.5-5.1); SODIUM SERUM 139 mmol/L (136-145); UREA NITROGEN, BLOOD 19 mg/dL (7-18)
--- NOTE | 2022-09-17 10:51 | NUR ---
RECEIVED ORDER TO GO BACK TO SNF FOR CONTINUE OF CARE. FA[place]ED ALL PAPERWORK TO [facility]. SPOKE WITH PERRY FROM [facility] [place] LOCATED AT [address] [place] [address]. PATIENT WAS ACCEPTED BACK AND WILL BE GOING TO ROOM 34-A UNDER DR YEN. TRANSPORTATION SET UP WITH REBEKA AT [facility] WITH A 12 PM MARKET ANALYSIS DIRECTOR TIME. CHARGE NURSE GOGO AND DAUGHTER LILIAM AWARE OF THE ABOVE INFORMATION.
[2022-09-17 11:20] VITALS: BP 137/88
--- NOTE | 2022-09-17 12:10 | NUR ---
PATIENT SEEN ON BED, FINISHED WITH LUNCH. PLACED ON STRETCHER BEING TRANSFERED TO [facility]
== END 2022-09-17 13:01 | DRG 311 ==
LOC: MED 11:46 → MTU 17:09
DX: I24.8 Other forms of acute ischemic heart disease (principal); E44.1 Mild protein-calorie malnutrition; K21.9 Gastro-esophageal reflux disease without esophagitis; E87.6 Hypokalemia; E78.5 Hyperlipidemia, unspecified; M47.816 Spondylosis without myelopathy or radiculopathy, lumbar region; Z20.822 Contact with and (suspected) exposure to COVID-19; D18.09 Hemangioma of other sites; I12.9 Hypertensive chronic kidney disease with stage 1 through stage 4 chronic kidney disease, or unspecified chronic kidney disease; E11.22 Type 2 diabetes mellitus with diabetic chronic kidney disease; N18.9 Chronic kidney disease, unspecified; K76.9 Liver disease, unspecified; Z79.891 Long term (current) use of opiate analgesic; Z79.899 Other long term (current) drug therapy; Z09 Encounter for follow-up examination after completed treatment for conditions other than malignant neoplasm; Z87.891 Personal history of nicotine dependence; Z68.29 Body mass index [BMI] 29.0-29.9, adult
CPT/HCPCS: 36415; 70450; 71045; 71275; 80048; 80053; 81003; 82948; 83690; 83735; 83880; 84100; 84484; 85025; 85610; 85730; 87040; 87081; 93005; 99285; J1815; Q0092; Q9967